=== PATIENT | female | born 1965 | race Caucasian/White ===

== ENCOUNTER 2024-05-10 09:45 | Day surgery (SDC) | payer OTHER ==
[2024-05-08 08:59] VITALS: BP 128/85
[~2024-05-10] VITALS: Ht 177.8 cm; Wt 113.6 kg
[~2024-05-10 09:45] MED LIST: ACIDOPHILUS1 EACH PO; BENADRYL25 MG PO; CEFAZOLIN SODIUM 2 GM/20 ML SYR IV SCH; CELEBREX200 MG PO; CYMBALTA30 MG PO; DICYCLOMINE HCL20 MG; DIPHENOXYLATE-1 EACH PO; ESTRACE1 MG PO; FAMOTIDINE40 MG PO; HEParin SOD (PORCINE) 5,000 UNIT/ML SDV SUB-Q SCH; HYDROCHLOROTHIA25 MG PO; HYDROCODON-ACE1 EA11 PO; L-LYSINE500 M2 PO; LOSARTAN POTASS50 MG PO; MEGA BIOTIN10000 MCG PO; MULTI VITAMIN1 EACH PO; ONDANSETRON ODT8 MG PO; PROTONIX40 MG PO; TOPAMAX25 MG PO
[2024-05-10 10:15] VITALS: BP 145/79
[2024-05-10] MEDS ORDERED: LACTATED RINGER'S 1,000 ML IV SCH (10:30)
[2024-05-10] MEDS ORDERED: DEXAMETHASONE SOD PHOS 4 MG/ML VIAL ONE (11:08)
[2024-05-10] MEDS ORDERED: ACETAMINOPHEN 1,000 MG/100 ML VIAL ONE (11:08)
[2024-05-10] MEDS ORDERED: propofoL 200 MG/20 ML VIAL ONE (11:08)
[2024-05-10] MEDS ORDERED: ondansetron HCL 4 MG/2 ML VIAL ONE (11:08)
[2024-05-10] MEDS ORDERED: SUGAMMADEX SODIUM 200 MG/2 ML ML ONE (11:08)
[2024-05-10] MEDS ORDERED: SUCCINYLCHOLINE IN 0.9% NACL 200 MG/10 ML SYRINGE ONE (11:08)
[2024-05-10] MEDS ORDERED: LIDOCAINE HCL 2% 5 ML SDV ONE (11:08)
[2024-05-10] MEDS ORDERED: ROCURONIUM BROMIDE 50 MG/5 ML SYR ONE (11:08)
[2024-05-10] MEDS ORDERED: dexmedeTOMIDine HCl 200 MCG/2 ML VIAL ONE (11:08)
[2024-05-10] MEDS ORDERED: iopamidoL 30 ML VIAL ONE (11:09)
[2024-05-10] MEDS ORDERED: SODIUM CHLORIDE 0.9% 60 ML IV ONE (11:09)
[2024-05-10] MEDS ORDERED: LIDOCAINE HCL 2% 20 MG/ML VIAL INJ ONE (11:09)
[2024-05-10] MEDS ORDERED: MIDAZOLAM HCL 2 MG/2 ML VIAL ONE (11:09)
[2024-05-10] MEDS ORDERED: fentaNYL citrate 100 MCG/2 ML VIAL ONE (11:09)
[2024-05-10] MEDS ORDERED: KETAMINE in NS 50 MG/5 ML SYR ONE (11:09)
[2024-05-10] MEDS ORDERED: METOCLOPRAMIDE HCL 10 MG/2 ML SDV ONE (11:39)
[2024-05-10] MEDS ORDERED: SCOPOLAMINE 1 MG/3 DAYS PATCH 1 EACH TDSY ONE (11:39)
[2024-05-10] MEDS ORDERED: LACTATED RINGER'S 1,000 ML IV ONE (11:40)
[2024-05-10] MEDS ORDERED: NALOXONE HCL 0.4 MG SYR IV PRN ×2 (11:45→13:15)
[2024-05-10] MEDS ORDERED: droPERidol 5 MG/2 ML VIAL IV PRN (11:45)
[2024-05-10] MEDS ORDERED: HYDROmorphone HCL 1 MG/ML SYR IV PRN (11:45)
[2024-05-10] MEDS ORDERED: fentaNYL citrate 50 MCG/ML SDV IV PRN (11:45)
[2024-05-10] MEDS ORDERED: IBLOOD GLUCOSE TEST STRIP 1 EA TEST VI PRN (11:45)
[2024-05-10] MEDS ORDERED: ondansetron HCL 4 MG/2 ML VIAL IV PRN (11:45)
[2024-05-10] MEDS ORDERED: PROCHLORPERAZINE EDISYLATE 10 MG/2 ML VIAL IV PRN (11:45)
[2024-05-10] MEDS ORDERED: SEVOFLURANE 250 ML BTL INH ONE (11:46)
[2024-05-10] MEDS ORDERED: ePHEDrine sulfate 50 MG/ML AMP ONE (12:02)
--- NOTE | 2024-05-10 12:58 | NUR ---
05/10/24 Tejas8 Aurora Oropeza 1257-PATIENT ARRIVED TO PACU ON 6L MASK RR EVEN. PATIENT REACTIVE TO VERBAL STIMULI MOVING LEFT ARM LIFTS HEAD OFF PILLOW. VERY DROWSY ORIENTED TO PACU DOZES BACK TO SLEEP. SR HR 70'S. 4 LAP SITES TO ABDOMEN INTACT. IVF INFUSING
[2024-05-10] MEDS ORDERED: ACETAMINOPHEN 500 MG TAB PO PRN (13:15)
[2024-05-10] MEDS ORDERED: OXYCODONE/APAP 7.5/325 TAB PO PRN (13:15)
[2024-05-10] MEDS ORDERED: ACETAMINOPHEN500 MG PO (13:15)
[2024-05-10] MEDS ORDERED: IBUPROFEN 600 MG TAB PO PRN (13:15)
[2024-05-10] MEDS ORDERED: IBUPROFEN600 MG PO (13:15)
[2024-05-10] MEDS ORDERED: OXYCODON-ACETA1 EAC2 PO (13:15)
[2024-05-10 13:41] VITALS: BP 122/61
--- NOTE | 2024-05-10 13:45 | NUR ---
SO 1335: PT IS BACK TO DS FROM PACU. SHE IS REPORTING PAIN 6/10. SHE IS TOLERATING WATER. SHE REQUESTS APPLE SAUCE AND A PAIN PILL. SHE IS EDUCATED THAT ONCE SHE EATS A LITTLE OF THAT APPLE SAUCE, WE CAN GET HER A PAIN PILL. CALL LIGHT IS WITHIN REACH. DC CRITERIA IS REVIEWED.
[2024-05-10 14:42] VITALS: BP 110/55
--- NOTE | 2024-05-10 14:43 | NUR ---
LE 1440: PT IS TOLERATING WATER AND APPLE SAUCE, PAIN MEDS IMPROVED HER PAIN. PT WOULD LIKE TO WAIT A LITTLE BIT LONGER BEFORE GETTING UP TO TRY AND VOID. CALL LIGHT WITHIN REACH. NO ADDTIONAL NEEDS AT THIS TIME.
[2024-05-10 15:37] VITALS: BP 136/72
--- NOTE | 2024-05-10 15:39 | EKG ---
[facility] [address] [facility] [place] [address] Signed Normal sinus rhythm Prolonged QT Abnormal ECG No previous ECGs available Confirmed by Matt March MD () on 05/10/2024 3:39:35 PM Electronically Signed By: MATT MARCH MD 05/10/24 1539 PATIENT NAME: SHARONDA KIRBY JO Electrocardiogram DATE OF : 61 PHYSICIAN: MATT MARCH MD REPORT #: [id number] REPORT IS CONFIDENTIAL AND NOT TO BE RELEASED WITHOUT AUTHORIZATION
--- NOTE | 2024-05-10 15:46 | NUR ---
LE 1521: PT IS ASSISTED UP OOB TO USE THE BATHROOM. SHE NEEDS STANDBY ASSIST, SHE STATES SHE FEELS A LITTLE WOOZY. SHE IS ABLE TO VOID 100ML. LE 1528: PT INDICATES THAT SHE WOULD LIKE TO GO HOME. SHE IS EDUCATED ON HOW TO BEST DRESS HERSELF AND TO EITHER TURN ON HER CALL LIGHT OR OPEN HER CURTAIN WHEN SHE IS READY. LE 1531: PT'S SIGNIFICANT OTHER IS CALLED AND NOTIFIED THAT SHE IS GETTING DRESSED TO GO HOME AND TO BRING THE CAR TO THE FRONT DOORS. LE 1542: PT IS GIVEN VERBAL AND WRITTEN DC INSTRUCTIONS. SHE VERBALIZES UNDERSTANDING. NO QUESTIONS AT THIS TIME. SHE IS TAKEN TO PERSONAL VEHICLE VIA .
--- NOTE | 2024-05-13 07:47 | OR ---
[facility] [address] [place], [place] [address] Signed DATE OF OPERATION: 05/10/2024 SURGEON: Chiki Sanchez MD PREOPERATIVE DIAGNOSES: 1. Recent acute calculous cholecystitis. 2. Obesity. POSTOPERATIVE DIAGNOSIS: Acute calculous cholecystitis. PROCEDURES: 1. Laparoscopic cholecystectomy with intraoperative cholangiogram; prolonged, complicated, and difficult. 2. Surgeon directed fluoroscopy. ANESTHESIA: General endotracheal. Ortega Orta CRNA and 10 mL of 0.25% Marcaine with epinephrine. INDICATION: This 58-year-old woman is a patient of Alicia Sanchez of [place], [place]. She presented to emergency room of [place] with complaints of severe right upper abdominal pain. A gallbladder ultrasound performed showed at least three gallstones, symptoms including right upper abdominal pain radiating into the back. She was seen in the emergency room in [place] on April 29. She was noted to have underlying nonalcoholic fatty liver disease and chronic kidney disease as well as irritable bowel syndrome. Multiple small gallstones were identified as well as gallbladder wall thickness of 1.3 mm. She is admitted at this time to undergo cholecystectomy preferred by laparoscopic approach. The risk of bleeding, infection, bile duct injury, need for open procedure and other unforeseen complications was reviewed with her. She understands and wished to proceed. FINDINGS: The gallbladder was quite severely inflamed actually. Dense omental adhesions and very soft tissue adhesions were noted. The gallbladder was ultimately well freed of those adhesions and cholecystectomy performed, though it was prolonged, complicated, difficult. There was stone debris within the cystic duct which was removed. No sign of common duct obstruction or common duct stones. The liver was reasonably normal. Cholangiogram was normal. DESCRIPTION OF PROCEDURE: Electronically Signed By: CHIKI SANCHEZ MD 05/13/24 0747 PATIENT NAME: SHARONDA KIRBY OPERATIVE REPORT DATE OF : 61 REPORT #: [id number] PHYSICIAN: CHIKI SANCHEZ MD PCP: ALICIA SANCHEZ PA-C REPORT IS CONFIDENTIAL AND NOT TO BE RELEASED WITHOUT AUTHORIZATION [facility] [address] [place], [place] [address] Signed The patient was brought to the operating room, given a general endotracheal anesthetic. Preoperative antibiotic Ancef was given. Sequential compression device stockings were used and heparin subcutaneously administered. The abdomen was clipped, prepared with chlorhexidine solution and draped sterilely. Using an open Brenden cannula technique, pneumoperitoneum was achieved to a level of 14 mmHg. She had a fair amount of intraabdominal an extra-abdominal fat and was morbidly obese. Internal inspection showed no sign of ascites or carcinomatosis. The liver had a sharp edge consistent with reasonably normal liver. Noted was a densely inflamed and adhesed gallbladder. Three additional trocars were placed in usual configuration subxiphoid, right midclavicular, and right anterior axillary line. The gallbladder was elevated cephalad and intense in an inflammatory adhesions of omentum to its undersurface were taken down with blunt electrocautery dissection. Ultimately, the gallbladder was well exposed. It was retracted laterally and using blunt electrocautery dissection the triangle of Calot was dissected free ultimately identifying the cystic duct and a dominant cystic artery. All care was taken with this dissection as inflammatory changes and edema was significant. Once the cystic duct was well characterized, a clip was applied across gallbladder cystic duct junction and a transverse choledochotomy made the cystic duct. Egress of mulberry yellow soft gallstone material was noted. The cystic was milked in a retrograde fashion allowing for egress of more stone material. Ultimately, there were no further stones extracted. At that point, an Chavez type cholangiocatheter system was used to provide for intraoperative cholangiography. Free flow of contrast was noted into the biliary tree with prompt emptying into the duodenum. Various views of the ductal system were undertaken again showing good flow into the duodenum. No sign of obstruction. The catheter was removed. The cystic duct was triply clipped and divided. The gallbladder was then dissected free in a retrograde fashion using electrocautery. The dominant arterial branch was ultimately divided and a plane developed between the liver and the gallbladder. Considerable inflammation was noted. It was very intense indeed. The gallbladder was ultimately removed and placed in an endobag and extracted through the infraumbilical port. The gallbladder was opened on the back table and found to have a yellow gallstone material numerous in amount and no evidence of neoplasm of mucosa. Irrigation was undertaken in subhepatic space. Electrocautery was used for hemostasis in the liver parenchymal area. Application of Aby hemostatic agent was undertaken as well. Hemostasis was good. Excess irrigation fluid was suctioned free. The trocars removed under direct visualization showing no sign of bleeding. The infraumbilical fascial incision was reapproximated with interrupted 0 Vicryl suture. Irrigation was undertaken. 10 mL of 0.25% Marcaine with epinephrine injected locally. The skin was closed with interrupted 3-0 Vicryl. Steri-Strips were applied. She ultimately underwent an intubation and was transferred to recovery room in good condition. Sponge, needle and instrument counts were as correct x3. Electronically Signed By: CHIKI SANCHEZ MD 05/13/24 0747 PATIENT NAME: SHARONDA KIRBY JO OPERATIVE REPORT DATE OF : 61 REPORT #: [id number] PHYSICIAN: CHIKI SANCHEZ MD PCP: ALICIA SANCHEZ PA-C REPORT IS CONFIDENTIAL AND NOT TO BE RELEASED WITHOUT AUTHORIZATION [address] [place], [place] [address] Signed MD JEFF Gilmore/JEWELL /[id number] cc: Alicia Sanchez PA-C [facility] Copies: ~ Electronically Signed By: CHIKI SANCHEZ MD 05/13/24 0747 PATIENT NAME: SHARONDA KIRBY OPERATIVE REPORT DATE OF : 61 REPORT #: [id number] PHYSICIAN: CHIKI SANCHEZ MD PCP: ALICIA SANCHEZ PA-C REPORT IS CONFIDENTIAL AND NOT TO BE RELEASED WITHOUT AUTHORIZATION
--- NOTE | 2024-05-15 09:16 | PATH ---
[facility] [address] [place], [place] [address] Signed SPECIMEN(S): A GALLBLADDER WITH STONES SPECIMEN SOURCE: A. GALLBLADDER WITH STONES CLINICAL HISTORY: Chronic cholecystitis FINAL PATHOLOGIC DIAGNOSIS: Gallbladder, cholecystectomy: - Acute and chronic calculous cholecystitis BRP MICROSCOPIC EXAMINATION: Histologic sections of all submitted blocks are examined by light microscopy. These findings, together with the gross examination, support the pathologic diagnosis. GROSS DESCRIPTION: The specimen, labeled and designated "Yang, gallbladder with stones," is received in formalin and consists of Specimen: Previously opened gallbladder. Dimensions: 6.0 x 3.4 x 3.0 cm. Serosa: Calera-espinosa to violaceous and slightly roughened. Cystic Duct: Unobstructed, margin inked black and shaved. Calculi: Multiple yellow-espinosa bosselated calculi (0.1-0.5 cm in greatest dimension, and 4.0 x 2.0 x 0.7 cm in aggregate. Mucosa: raised green gelatinous mucosa with areas of green velvety mucosa. Wall thickness: 0.3-1.0 cm. Lymph node: No pericystic lymph nodes are grossly identified. Additional: None. Coding Specialist sections are submitted in (A1-A2). VB (under the direct supervision of a pathologist) The Gross Description was prepared using a voice recognition system. The report was reviewed for accuracy; however, sound-alike word errors, addition and/or deletions may occur. If there is any question about this report, please contact Client Services. ADDITIONAL NOTES: Immunohistochemical and/or in situ hybridization studies if performed in this case included appropriate positive controls that reacted as expected. This PATIENT NAME: SHARONDA KIRBY PATHOLOGY DATE OF : 61 REPORT #: [id number] PHYSICIAN: ZOE COFFMAN PCP: DEANNE VILLAGOMEZ PA-C REPORT IS CONFIDENTIAL AND NOT TO BE RELEASED WITHOUT AUTHORIZATION [facility] [address] [place] [place] [address] Signed test was developed and its performance characteristics determined by [employer] [facility]. It has not been cleared or approved by the U.S. Food and Drug Administration. The FDA has determined that such clearance or approval is not necessary. This test is used for clinical purposes. It should not be regarded as investigational or for research. [employer] is certified under the Clinical Laboratory Improvement Amendments of 1988 (CLIA) as qualified to perform high complexity clinical laboratory testing. PERFORMING LABORATORY: Technical component was performed by [facility], [address] [place] [address] (CLIA# [id number]). Professional interpretation was performed by [facility], [address] [place] [address] (CLIA#: [id number]). Diagnostician: Ventura Salgado MD Pathologist Electronically Signed 05/15/2024 Copies: ~ PATIENT NAME: BOOTHMAN,NELSON PATHOLOGY DATE OF : 61 REPORT #: [id number] PHYSICIAN: ZOE COFFMNA PCP: EDANNE VILLAGOMEZ PA-C REPORT IS CONFIDENTIAL AND NOT TO BE RELEASED WITHOUT AUTHORIZATION
== END 2024-05-10 15:45 | disposition home or self-care (01) ==
LOC: DS 09:45 → EDBD 12:30 → DS 15:45
PROVIDERS: ATTEND Surgery
PROC: BF03YZZ Plain Radiography of Gallbladder and Bile Ducts using Other Contrast (ICD-10-PCS; 2024-05-10)
PROC: 0FT44ZZ Resection of Gallbladder, Percutaneous Endoscopic Approach (ICD-10-PCS; principal; 2024-05-10 11:35)
DX: K80.12 Calculus of gallbladder with acute and chronic cholecystitis without obstruction (principal); K82.8 Other specified diseases of gallbladder; I12.9 Hypertensive chronic kidney disease with stage 1 through stage 4 chronic kidney disease, or unspecified chronic kidney disease; N18.9 Chronic kidney disease, unspecified; K76.0 Fatty (change of) liver, not elsewhere classified; E66.01 Morbid (severe) obesity due to excess calories; Z68.35 Body mass index [BMI] 35.0-35.9, adult; Z79.899 Other long term (current) drug therapy; Z90.710 Acquired absence of both cervix and uterus
CPT/HCPCS: 00790; 74300; 93005; 93010; J0131; J0330; J0690; J1100; J1644; J2003; J2250; J2405; J2704; J2765; J3010; J3490; J7121; Q9967